=== PATIENT | male | born 1980 | race Caucasian/White ===

== ENCOUNTER 2022-04-21 05:56 | Day surgery (SDC) | payer BC ==
[2022-04-21] MEDS ORDERED: Lactated Ringers 1,000 ML IV SCH (06:30)
[2022-04-21] MEDS ORDERED: Xylocaine-Mpf 2% 5 Ml Vial ONE (06:51)
[2022-04-21] MEDS ORDERED: DIPRIVAN 200 MG/20 ML IV ONE (06:51)
--- NOTE | 2022-04-21 07:36 | OP ---
SURGERY DATE/TIME: 04/21/2022 0708 PREOPERATIVE DIAGNOSES: 1) Routine health screening. 2) History of rectal bleeding. POSTOPERATIVE DIAGNOSIS: Normal colon. PROCEDURE: Screening colonoscopy. SURGEON: Michael Perry M.D. ANESTHESIA: MAC by Devin Talley CRNA. ESTIMATED BLOOD LOSS: None. SPECIMENS: None. DESCRIPTION OF PROCEDURE: After informed written consent was obtained, the patient was taken to the endoscopy suite. He was placed in left lateral decubitus position and anesthesia was titrated to desired level of consciousness. Digital rectal exam showed normal sphincter tone and no internal lesions. The scope was inserted into the rectum and sequentially the entire colonic mucosa was traversed. The level of cecum was reached and verified with direct visualization of the ileocecal valve. Upon withdrawal careful mucosal inspection revealed no gross abnormalities. Prior to withdrawal retroflexion showed no internal lesions. The scope was removed. The patient was transferred to the recovery room in good condition.
[2022-04-21 07:56] VITALS: O2SAT 99
[2022-04-21 08:22] VITALS: BP 125/87; PULSE 59
== END 2022-04-21 08:25 | disposition home or self-care (01) ==
LOC: SDC 05:56
PROVIDERS: ATTEND Family Medicine
DX: Z12.11 Encounter for screening for malignant neoplasm of colon (principal); Z87.19 Personal history of other diseases of the digestive system
CPT/HCPCS: J2704

== ENCOUNTER 2022-07-05 16:56 | Emergency (ER) | payer BC ==
[2022-07-05 17:53] VITALS: O2SAT 100
--- NOTE | 2022-07-05 20:45 | ERPHSYRPT ---
- History of Present Illness Source: patient Exam Limitations: no limitations Patient Subjective Stated Complaint: pt cut his right hand index finger between the first and second knuckle on a slicer Triage Nursing Assessment: Pt brought self to the ER, hypertensive, denies pain, 2.5 cm laceration to his right index finger above the first knuckle, has been bleeding for 1.5 hours with pressure, pulses normal, cap refill normal, doesn't appear to be in any distress Physician History: 41 yo wm w laceration dorsal R 2nd digit between MCP and PIP dorsally. Pt cut it in his kitchen before arrival. He is R handed and tetanus is UTD. Occurred: just prior to arrival Method of Injury: incised Quality: constant Severity of Pain-Max: mild Severity of Pain-Current: mild Extremities Pain Location: 2nd finger: right Modifying Factors: Improves With: movement Associated Symptoms: none Allergies/Adverse Reactions: No Known Drug Allergies Allergy (Verified 07/05/22 17:53) Hx Tetanus, Diphtheria Vaccination/Date Given: No (within 6 months) Hx Influenza Vaccination/Date Given: No Hx Pneumococcal Vaccination/Date Given: No Travel Risk - International Travel Have you traveled outside of the country in past 3 weeks: No - Coronavirus Screening Are you exhibiting any of the following symptoms?: No Close contact with a COVID-19 positive Pt in past 14-21 Days: No - Vaccine Status Have you recieved a Covid-19 vaccination: Yes [employer]: Moderna - Vaccination Dates Date of 2cond Vaccination (if applicable): 2020 - Review of Systems Constitutional: No Symptoms Eyes: No Symptoms Ears, Nose, & Throat: No Symptoms Respiratory: No Symptoms Cardiac: No Symptoms Abdominal/Gastrointestinal: No Symptoms Genitourinary Symptoms: No Symptoms Skin: No Symptoms Neurological: No Symptoms Psychological: No Symptoms Endocrine: No Symptoms Hematologic/Lymphatic: No Symptoms Immunological/Allergic: No Symptoms - Past Medical History Pertinent Past Medical History: Yes Neurological History: No Pertinent History, Epilepsy Cardiac History: No Pertinent History Respiratory History: Sleep Apnea, Other Endocrine Medical History: No Pertinent History Musculoskeletal History: No Pertinent History GI Medical History: GERD History: No Pertinent History Psycho-Social History: No Pertinent History Male Reproductive Disorders: No Pertinent History Other Medical History: Former smoker. Quit 1999. 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 - Past Surgical History Past Surgical History: Yes Neuro Surgical History: No Pertinent History Cardiac: No Pertinent History Respiratory: No Pertinent History Gastrointestinal: No Pertinent History Genitourinary: No Pertinent History Musculoskeletal: No Pertinent History Male Surgical History: No Pertinent History Other Surgical History: Cosmetic surgery to remove mole under his eye. - Social History Smoking Status: Former smoker Exposure to second hand smoke: No Drug Use: none Patient Lives Alone: No Significant Family History: no pertinent family hx - Nursing Vital Signs Nursing Vital Signs: Initial Vital Signs Temperature 97.5 F 07/05/22 17:40 Pulse Rate 65 07/05/22 17:40 Blood Pressure 144/85 07/05/22 17:40 O2 Sat by Pulse Oximetry 100 07/05/22 17:40 Pain Scale Pain Intensity 10 Hypertensive - Physical Exam General Appearance: no apparent distress Eyes, Ears, Nose, Throat Exam: normal ENT inspection Neck Exam: normal inspection Cardiovascular/Respiratory Exam: normal breath sounds, regular rate/rhythm, heart sounds normal Abdominal Exam: non-tender, soft Back Exam: normal inspection Shoulder Exam: normal inspection Elbow/Forearm Exam: normal inspection Wrist Exam: normal inspection Hand Exam: laceration (2cm dorsal laceration between MCP and PIP/FROM/Good d istal capillary return and sensation) Neuro/Tendon Exam: normal sensation, normal motor functions, normal tendon functions, responds to pain, tendon injury visualized (Almost complete transection of extensor tendon) Mental Status Exam: alert, oriented x 3, cooperative Skin Exam: normal color SpO2 Interpretation: normal SpO2: 100 O2 Delivery: Room Air Procedures - Laceration/Wound Repair Right Dorsal Finger Wound Location: Right (R dorsal 2nd digit between MCP/PIP) Wound Length (cm): 3 Wound's Depth, Shape: linear Wound Explored: clean Irrigated: Yes Hibiclens Prep: Yes Anesthesia: digital block, 1% Lidocaine Volume Anesthetic (ccs): 4 Wound Repaired With: sutures (4.0 Ethilon x7) Number of Sutures: 7 Sterile Dressing Applied?: Yes - Course Nursing assessment & vital signs reviewed: Yes Ordered Tests: Medication Summary Discontinued Medications Generic Name Dose Route Start Last Admin Trade Name Freq PRN Reason Stop Dose Admin Hydrocodone Bitart/Acetaminophen 2 tab 07/05/22 21:01 07/05/22 21:06 Hydrocodone/Apap 5/325 Mg Tablet PO 07/05/22 21:02 2 tab SENT HOME W/ PATIENT ONE Administration Hydrocodone Bitart/Acetaminophen Confirm 07/05/22 21:06 Hydrocodone/Apap 5/325 Mg Tablet Administered 07/05/22 21:07 Dose 2 tab .ROUTE .STK-MED ONE Cephalexin HCl 500 mg 07/05/22 21:01 07/05/22 21:06 Cephalexin Mh500 Mg Capsule PO 07/05/22 21:02 500 mg STAT ONE Administration Cephalexin HCl Confirm 07/05/22 21:05 Cephalexin Mh500 Mg Capsule Administered 07/05/22 21:06 Dose 500 mg .ROUTE .STK-MED ONE - Progress Progress: improved Progress Note: 07/05/22 21:00 Spoke w francis Pelayo pt loosely repaired and will see at 9:00AM tomorrow. Wants Keflex started and not NPO 07/06/22 01:07 Counseled pt/family regarding: diagnosis, need for follow-up - Departure Departure Disposition: Home Clinical Impression: Finger laceration involving tendon Condition: Stable Critical Care Time: No Referrals: TRINA DUGGAN MD [Primary Care Provider] - Follow up/PCP as directed Instructions: Wound Care (DC), Laceration Repair With Stitches (DC) Additional Instructions: Dr. Gusman 9:00AM tomorrow 07/06/22 [address] [facility] [address] Prescriptions: Cephalexin Mh 500 mg [Keflex 500 mg] 500 mg PO TID #30
[2022-07-05] MEDS ORDERED: NORCO 5/325 MG PO ONE (21:01)
[2022-07-05] MEDS ORDERED: KEFLEX 500 MG PO ONE (21:01)
[2022-07-05] MEDS ORDERED: KEFLEX 500 MG ONE (21:05)
[2022-07-05] MEDS ORDERED: NORCO 5/325 MG ONE (21:06)
[2022-07-05 21:14] VITALS: BP 141/94; PULSE 70
== END 2022-07-05 21:15 | disposition home or self-care (01) ==
LOC: ED 16:56
DX: S66.320A Laceration of extensor muscle, fascia and tendon of right index finger at wrist and hand level, initial encounter (principal); S61.210A Laceration without foreign body of right index finger without damage to nail, initial encounter; W26.8XXA Contact with other sharp object(s), not elsewhere classified, initial encounter; Y93.G1 Activity, food preparation and clean up; Y92.000 Kitchen of unspecified non-institutional (private) residence as the place of occurrence of the external cause
CPT/HCPCS: 12002; 99282; A9270-GY